=== PATIENT | male | born 1990 | race Caucasian/White ===

== ENCOUNTER 2017-07-21 13:39 | Observation (INO) ==
--- NOTE | 2017-07-21 19:01 | Emergency Department Note ---
Disposition Clinical Impression: Odynophagia, Hematemesis with nausea, Abdominal pain of unknown etiology Abdominal pain Qualifiers: Abdominal location: generalized Qualified Code(s): R10.84 - Generalized abdominal pain Disposition: Admitted As Inpatient Condition: Fair Time of Disposition: 23:06 General Adult HPI - General Chief complaint: ED Abdominal Pain Stated complaint: Vomiting Blood/trouble swallowing Time Seen by Provider: 07/21/17 18:38 Source: patient Mode of arrival: ambulatory Limitations: no limitations Nursing Notes Reviewed: Yes Vital Signs Reviewed: Yes - History of Present Illness HPI Narrative: 27-year-old male complains of odynophagia 7 days. Patient states that 7 days ago he attempted to swallow a house admin cupcake and he felt pain after swallowing and thought that it got stuck. Patient states it eventually cleared, but since then he has been having further episodes of odynophagia whenever he tries eat anything solid or semisolid like swallowing ice cream. Patient states he has similar pain with water but he is able to keep water down. All other foods, were vomited whenever he attempted to eat. Patient rates the pain as 5/10 and sharp with radiation upward toward his neck. Patient also complains of pain in the abdomen across his lower abdomen and epigastric, and left upper quadrant that started with the symptoms. Patient states he had 2 bouts of hematemesis. The first event was 5 days ago. Patient states he vomited approximately 4 ounces of bright red blood. The second incidence was this morning after attempting to eat ice cream. Patient has a medical history for GERD and is on Protonix at home. Patient has never had upper endoscopy for gastric ulcers in the past Pain Scale: 4 - Related Data Home Medications Medication Instructions Recorded Confirmed Acetaminophen/Butalbital/Caffe 1 each PO TID PRN 07/21/17 07/21/17 [Fioricet] Buprenorphine HCl/Naloxone HCl 1 each SL BID 07/21/17 07/21/17 [Suboxone 8 mg-2 mg Sl Film] Desvenlafaxine Succinate [Pristiq 50 mg PO DAILY 07/21/17 07/21/17 ER] Fenofibrate Nanocrystallized 145 mg PO BID 07/21/17 07/21/17 [Tricor] Pantoprazole Sodium [Protonix] 40 mg PO DAILY 07/21/17 07/21/17 Trazodone HCl 150 mg PO HS 07/21/17 07/21/17 clonazePAM [Klonopin] 1 mg PO TID 07/21/17 07/21/17 Allergies Allergy/AdvReac Type Severity Reaction Status Date / Time morphine Allergy Swelling Verified 07/21/17 14:32 of Lip/Tongue/Throat tramadol Allergy Swelling Verified 07/21/17 14:32 of Lip/Tongue/Throat All systems ED: reviewed and negative except as stated. Review of Systems: As Per HPI Constitutional: Denies: fever, chills, weakness Eyes: Denies: vision change ENT ED: Denies: congestion Cardiovascular: Reports: chest pain. Denies: palpitations, dyspnea on exertion , orthopnea Respiratory: Denies: cough, dyspnea Gastrointestinal: Reports: abdominal pain, nausea, vomiting. Denies: diarrhea Neurological: Denies: headache Endocrine: Reports: fatigue Past Medical History - Past Medical History Attestation: Yes The following information was validated with the patient. Source: patient, nursing notes reviewed Medical history: Reports: hyperlipidemia Psychiatric history: Reports: anxiety, depression, PTSD - Social History Smoking Status: Never smoker Alcohol use: Reports: none Drug use: Reports: none Physical Exam Vital Signs Temperature 98.5 F 07/21/17 14:28 Pulse Rate 100 07/21/17 14:28 Respiratory Rate 18 07/21/17 14:28 Blood Pressure 157/92 07/21/17 14:28 O2 Sat by Pulse Oximetry 98 07/21/17 14:28 Temperature 98.5 F 07/21/17 14:28 Pulse Rate 100 07/21/17 14:28 Respiratory Rate 18 07/21/17 14:28 Blood Pressure 157/92 07/21/17 14:28 O2 Sat by Pulse Oximetry 98 07/21/17 14:28 Oxygen Delivery Oxygen Delivery Room Air 27-year-old male who is alert and oriented 3 and does not appear to be in any acute distress at this time. Patient has no visible pallor. Patient is also nontoxic appearing - General Limitations: no limitations General appearance: alert, in no apparent distress - Head Head exam: atraumatic, normocephalic, normal inspection - Eye Eye exam: Present: normal appearance, PERRL, EOMI - ENT ENT exam: normal exam, normal oropharynx, mucous membranes moist - Neck Neck exam: Present: normal inspection, full ROM, trachea midline - Chest Chest inspection: Present: normal inspection, symmetric chest wall rise - Respiratory Respiratory exam: Present: normal lung sounds bilaterally - Cardiovascular Cardiovascular exam: Present: regular rate, normal rhythm, normal heart sounds - Abdominal Exam Abdominal exam: Present: soft, tenderness Abdominal tenderness: Present: RLQ, LUQ, LLQ, epigastrium, suprapubic - Extremities Exam Extremities exam: Present: normal inspection, full ROM, normal capillary refill. Absent: tenderness, pedal edema Course - Reevaluation(s) Reevaluation #2: Ordered 50 mg of fentanyl and a milligrams Zofran for pain and nausea Time: 22:58 - Consultations Consultation #1: Dr. Parker of gastroenterology has agreed to perform endoscopy tomorrow. Time: 22:44 Vital Signs Temperature 98.5 F 07/21/17 14:28 Pulse Rate 100 07/21/17 14:28 Respiratory Rate 18 07/21/17 14:28 Blood Pressure 157/92 07/21/17 14:28 O2 Sat by Pulse Oximetry 98 07/21/17 14:28 Temperature 98.5 F 07/21/17 14:28 Pulse Rate 82 07/21/17 22:37 Respiratory Rate 16 07/22/17 01:08 Blood Pressure 129/89 07/22/17 01:08 O2 Sat by Pulse Oximetry 100 07/21/17 22:37 Oxygen Delivery Oxygen Delivery Room Air Medical Decision Making - [facility] Narrative Medical decision making narrative: Patient with history of odynophagia and hematemesis for the past week concerning for possible Ivania-Wall tear, Beorhaave, peptic ulcer disease, with abdominal pain symptoms concerning for possible pancreatitis, colitis, UTI. 2037: Patient states that he is pretty comfortable after his medications. Currently rates his pain as 3/10. Patient is currently waiting to go to CT 2220 hours: Patient finally has agreed back from CT. Patient's CT scan shows no abnormalities. Current plan is for patient to be admitted for inability to tolerate by mouth with recent odontophagia and hematemesis. Patient has no signs of anemia on CBC, and no elevation of WBC. Patient's chemistries show mild reduction in sodium at 135.. 2230 hrs.: Patient complains of increasing pain. I reordered his fentanyl of 50 g as well as Zofran 8 mg IV. Patient has received Protonix bolus of 80 mg and will be started on protonixs drip. Patient still appears nontoxic and is doing well. Patient understands and accepts the decision for admission and understands that he would be Kept nothing by mouth until follow-up with GI. 2244 hrs.: Dr. Parker of gastroenterology has agreed to see the patient once he is admitted for endoscopy. Dr. Goss the hospitalist has accepted patient for admission at 0028 hours - Lab Data Lab results reviewed: Yes I reviewed the patient's lab results. Lab results narrative: Short CBC 07/21/17 Range/Units 20:16 WBC 7.2 (4.3-11.1) K/mcL Hgb 14.7 (12.9-16.9) g/dL Hct 44.4 (37.5-50.1) % Plt Count 255 (140-400) K/mcL Neutrophils # 2.6 (1.6-8.9) K/mcL BMP 07/21/17 Range/Units 20:16 Sodium 135 L (136-145) mEq/L Potassium 3.8 (3.5-5.1) mEq/L Chloride 99 (98-107) mEq/L Carbon Dioxide 27 (23-29) mEq/L BUN 6 (6-20) mg/dL Creatinine 1.01 (0.70-1.30) mg/dL Glucose 90 (70-105) mg/dL Calcium 9.6 (8.6-10.3) mg/dL Liver Function 07/21/17 Range/Units 20:16 Total Bilirubin 0.3 (0.3-1.0) mg/dL Direct Bilirubin 0.0 (0.0-0.2) mg/dL AST 24 (13-39) Units/L ALT 36 (7-52) Units/L Alkaline Phosphatase 64 (34-104) Units/L Albumin 4.9 (3.5-5.7) g/dL Urine 07/21/17 Range/Units 22:26 Urine Color Yellow (Yellow) Urine Clarity Clear (Clear) Urine pH 5.5 (5.0-8.0) pH Units Ur Specific [place] > 1.030 H (1.010-1.025) Urine Protein Negative (Neg-Trace) mg/dL Urine Glucose (UA) Normal (Normal) mg/dL Result diagrams: 07/21/17 20:16 07/21/17 20:16 Lab Results 07/21/17 07/21/17 07/21/17 Range/Units 20:16 20:16 22:26 WBC 7.2 (4.3-11.1) K/mcL RBC 5.56 H (4.19-5.50) M/mcL Hgb 14.7 (12.9-16.9) g/dL Hct 44.4 (37.5-50.1) % MCV 79.9 L (83.0-100.0) fL MCH 26.4 L (28.0-33.3) pg MCHC 33.1 (31.6-35.5) g/dL RDW 14.4 (11.5-14.5) % Plt Count 255 (140-400) K/mcL MPV 10.1 (9.4-12.4) fL Immature Gran % 0.1 (0-4) % Seg Neutrophils % 35.5 % Lymphocytes % 41.3 % Monocytes % 4.6 % Eosinophils % 17.8 % Basophils % 0.7 % Neutrophils # 2.6 (1.6-8.9) K/mcL Lymphocytes # 3.0 (0.6-4.6) K/mcL Monocytes # 0.3 (0.0-1.3) K/mcL Eosinophils # 1.3 H (0.0-0.6) K/mcL Basophils # 0.1 (0.0-0.2) K/mcL Sodium 135 L (136-145) mEq/L Potassium 3.8 (3.5-5.1) mEq/L Chloride 99 (98-107) mEq/L Carbon Dioxide 27 (23-29) mEq/L BUN 6 (6-20) mg/dL Creatinine 1.01 (0.70-1.30) mg/dL Est GFR ( Amer) > 60 (> 60) Est GFR (Non-Af Amer) > 60 (> 60) BUN/Creatinine Ratio 6 (6-26) Glucose 90 (70-105) mg/dL Calculated Osmolality 277 L (280-300) Calcium 9.6 (8.6-10.3) mg/dL Total Bilirubin 0.3 (0.3-1.0) mg/dL Direct Bilirubin 0.0 (0.0-0.2) mg/dL Indirect Bilirubin 0.3 (0.0-1.2) mg/dL AST 24 (13-39) Units/L ALT 36 (7-52) Units/L Alkaline Phosphatase 64 (34-104) Units/L Serum Total Protein 7.2 (6.4-8.9) g/dL Albumin 4.9 (3.5-5.7) g/dL Globulin 2.3 L (2.4-3.5) g/dL Albumin/Globulin Ratio 2.1 (1.1-2.2) Lipase 13 (11-82) Units/L Urine Color Yellow (Yellow) Urine Clarity Clear (Clear) Urine pH 5.5 (5.0-8.0) pH Units Ur Specific [place] > 1.030 H (1.010-1.025) Urine Protein Negative (Neg-Trace) mg/dL Urine Glucose (UA) Normal (Normal) mg/dL Urine Ketones Negative (Negative) mg/dL Urine Blood Negative (Negative) Urine Nitrite Negative (Negative) Urine Bilirubin Negative (Negative) Urine Urobilinogen Normal (Normal) mg/dL Ur Leukocyte Esterase Negative (Negative) - Radiology Data Radiology results reviewed: Yes I reviewed the patient's radiology results. Chest X-Ray 07/21/17 14:37 IMPRESSION: 1. Abnormal appearance of the cervical soft tissues. No radiopaque foreign body. 2. Normal chest. D/ / 07/21/2017 17:07:58 Fede Bunch MD / tito Interpreting Provider: Fede Bunch MD Soft Tissue Neck X-Ray 07/21/17 14:37 IMPRESSION: 1. Abnormal appearance of the cervical soft tissues. No radiopaque foreign body. 2. Normal chest. D/ / 07/21/2017 17:07:58 Fede Bunch MD / tito Interpreting Provider: Fede Bunch MD Abdomen/Pelvis CT 07/21/17 19:09 IMPRESSION: No acute abnormality identified. Fatty, moderately enlarged liver. D/ / Jairo Gupta MD / Jairo Gupta MD Interpreting Provider: Jairo Gupta MD Chest CT 07/21/17 19:09 IMPRESSION: No acute abnormality identified. Fatty, moderately enlarged liver. D/ / Jairo Gupta MD / Jairo Gupta MD Interpreting Provider: Jairo Gupta MD - EKG Data EKG #1 EKG attestation: Yes I reviewed and interpreted this EKG. EKG results narrative: EKG taken 07/21/2017 at 2056 shows sinus rhythm at a rate of 71 beats minute with no acute ST elevations or depressions any leads, no Q's widened QT prolongation. This is regular rate and rhythm with a previous EKG for comparison taken 04/22/2012 with also shows a sinus rhythm at a rate of 80 beats minute with no signs of ischemia. Attestation Statement - Attestation Attestation: I examined this patient and my medical decision-making was reviewed with the Resident Physician, Dr. De León. I agree with the documented findings, disposition and treatment plan as described except to the extent set forth below. Patient is a 27-year-old white male who present to the emergency department today with complaint of odynophagia and hematemesis since last Thursday. Patient states it all began when he got a house admin cupcake that felt like it got stuck pointing to his substernal area. Patient states he drink lots of water until he felt it finally passed and the discomfort was relieved. Patient states since this incident last week every time he eats anything solid he gets that same recurrent feeling of something getting stuck and ultimately has to have a vomiting episode to relieve the distress. He is unable to tolerate anything but fluids at this point and states that even sometimes has trouble with that. Patient had no prior GI history, never had an endoscopy in the past and never has had symptoms like this before. Over the past 2 days when he has had vomiting secondary to recurrence of this food bolus sensation he has noticed bright red blood with vomiting. Patient denies any lightheadedness or syncope, also has complained of some mild suprapubic abdominal pain as well. Patient denies any bright red blood per rectum or tarry black stool. Denies any other associated symptoms. I agree with the patient's physical exam findings as documented. Vital signs are stable and he is having no acute distress. IV Protonix was initiated as well as pain and antiemetics. Laboratory values were obtained and patient was sent for CT imaging of his chest and abdomen after speaking with the radiologist with our concerns for possible Ivania- Wall tear versus Boerhaave's injury. They recommended that he be orally contrasted with Gastrografin CT with timed imaging to rule out any esophageal perforation. Patient's labs are within normal limits and CT imaging was negative for any acute chest or intra-abdominal pathology. Patient still unable to tolerate by mouth somewhat admit the patient for further evaluation and GI consult. GI was consulate from the emergency department.
[2017-07-21] MEDS ORDERED: 0.9 % Sodium Chloride 500 ML IVC ONE (19:09)
[2017-07-21] MEDS ORDERED: *HR* FentaNYL (PF) 100 MCG/2 ML VIAL IVP ONE ×2 (19:11→22:57)
[2017-07-21] MEDS ORDERED: Ondansetron 4 MG/2 ML VIAL IVP PRN ×2 (19:11→22:57)
[2017-07-21] MEDS ORDERED: Pantoprazole 80 MG in Water for inj. (sterile) 10 ML IVP ONE (19:11)
[2017-07-21 20:29] LABS: Basophils # 0.1 K/mcL (0.0-0.2); Basophils % 0.7 %; Eosinophils # 1.3 K/mcL (0.0-0.6); Eosinophils % 17.8 %; Hematocrit 44.4 % (37.5-50.1); Hemoglobin 14.7 g/dL (12.9-16.9); Immature Granulocytes % 0.1 % (0-4); Lymphocytes % 41.3 %; Mean Corpuscular HGB Conc 33.1 g/dL (31.6-35.5); Mean Corpuscular Hemoglobin 26.4 pg (28.0-33.3); Mean Corpuscular Volume 79.9 fL (83.0-100.0); Mean Platelet Volume 10.1 fL (9.4-12.4); Monocytes # 0.3 K/mcL (0.0-1.3); Monocytes % 4.6 %; Neutrophils # 2.6 K/mcL (1.6-8.9); Platelet Count 255 K/mcL (140-400); Red Blood Count 5.56 M/mcL (4.19-5.50); Red Cell Distribution Width 14.4 % (11.5-14.5); Segmented Neutrophils % 35.5 %
[2017-07-21 20:38] LABS: Albumin 4.9 g/dL (3.5-5.7); Bilirubin,Indirect 0.3 mg/dL (0.0-1.2); Bilirubin,Total 0.3 mg/dL (0.3-1.0); Calcium 9.6 mg/dL (8.6-10.3); Carbon Dioxide 27 mEq/L (23-29); Chloride 99 mEq/L (98-107); Potassium 3.8 mEq/L (3.5-5.1); Sodium 135 mEq/L (136-145)
[2017-07-21 20:44] LABS: Alanine Aminotransferase 36 Units/L (7-52); Albumin/Globulin Ratio 2.1 (1.1-2.2); Alkaline Phosphatase 64 Units/L (34-104); Aspartate Amino Transferase 24 Units/L (13-39); BUN/Creatinine Ratio 6 (6-26); Blood Urea Nitrogen 6 mg/dL (6-20); Globulin 2.3 g/dL (2.4-3.5); Glucose 90 mg/dL (70-105); Lipase 13 Units/L (11-82); Osmolality,Calculated 277 (280-300); Total Protein 7.2 g/dL (6.4-8.9); eGFR For African Americans > 60 (> 60); eGFR For Non-African Americans > 60 (> 60)
[2017-07-21 22:39] LABS: Bilirubin,Urine Negative (Negative); Blood,Urine Negative (Negative); Clarity,Urine Clear (Clear); Color,Urine Yellow (Yellow); Glucose,Urine (UA) Normal (Normal); Ketones,Urine Negative (Negative); Leukocyte Esterase,Urine Negative (Negative); Nitrite,Urine Negative (Negative); PH,Urine 5.5 pH Units (5.0-8.0); Protein,Urine Negative (Neg-Trace); Specific Gravity,Urine > 1.030 (1.010-1.025); Urobilinogen,Urine Normal (Normal)
[2017-07-21] MEDS ORDERED: Pantoprazole 40 MG in 0.9 % Sodium Chloride Mini Bag 100 ML IVC SCH (23:15)
[2017-07-22] MEDS ORDERED: 0.9 % Sodium Chloride 1,000 ML IVC SCH ×2 (01:15→02:45)
[2017-07-22] MEDS ORDERED: *HR* HYDROmorphone (PF) 1 MG/ML SYRINGE IVP PRN (02:41)
[2017-07-22] MEDS ORDERED: Naloxone 0.4 MG/ML INJ IVP PRN (02:52)
[2017-07-22] MEDS: Ondansetron 4 MG/2 ML VIAL IVP PRN ×3 (03:15→23:40)
[2017-07-22] MEDS: Ketorolac 30 MG/ML VIAL IVP PRN ×2 (03:15→10:15)
--- NOTE | 2017-07-22 03:30 | Internal Med History&Physical ---
<Vishal Lainez - Last Filed: 07/22/17 03:07> Date of Encounter: 07/22/17 Time of Encounter: 03:07 Assessment and Plan (1) Hematemesis with nausea Current visit: Yes Status: Acute stated history of hematemesis x2 episodes not anemic at this time, no known history of alcohol abuse or prior similar bleed monitor due to concern of ongoing blood loss cont to monitor labs -- CBC and BMP patient is NPO GI consult is pending for possible EGD Cont Protonix and IVF (2) Dysphagia, unspecified Current visit: Yes Status: Acute states food gets stuck deep in chest GI consult pending; will likely benefit from EGD other plans as above Qualifiers: Dysphagia type: esophageal phase Qualified Code(s): R13.10 - Dysphagia, unspecified (3) Abdominal pain of unknown etiology Current visit: Yes Status: Acute extensive imaging work up negative including XR/CT consult pending with GI other plan as above (4) DVT prophylaxis Current visit: Yes Status: Acute hold subq heparin due to UGI bleed ambulate TID Internal Medicine - H&P: HPI Chief complaint: dysphagia, abd pain, bloody vomit Admitted From: Emergency Dept Plans for Post Hospital Care: Home History of present illness: Mr. Raza is a 27 year old male with no known medical history is admitted for new upper GI bleed. Patient states has had lower quadrant abdominal pain starting last Thursday which is sharp in quality without any referral or migration. Also, since has had difficulty swallowing foods and has noted two episodes of grossly bloody vomitus in the interim -- once Thursday morning and once Thursday (07/21/16) morning. Denies fevers, myalgias, ongoing nausea, chest pain, SOA, diarrhea, melena, hematemesis, dysuria/hematuria, testicular pain, or urethral discharge. Has since eaten exclusively soft foods having difficulty still with soft fluids and liquids. Does have ongoing dyspepsia for which he takes Protonix at home. Denies any alcohol use. Past Med Surg Social Fam HX - Past Medical History Medical history: hyperlipidemia Psychiatric history: anxiety, depression, PTSD - Social History Smoking Status: Never smoker Alcohol use: none Drug use: none Internal Medicine - H&P: Meds Acetaminophen/Butalbital/Caffe [Fioricet] 1 each PO TID PRN 07/21/17 [History] Buprenorphine HCl/Naloxone HCl [Suboxone 8 mg-2 mg Sl Film] 1 each SL BID [History] Desvenlafaxine Succinate [Pristiq ER] 50 mg PO DAILY 07/21/17 [History] Fenofibrate Nanocrystallized [Tricor] 145 mg PO BID 07/21/17 [History] Pantoprazole Sodium [Protonix] 40 mg PO DAILY 07/21/17 [History] Trazodone HCl 150 mg PO HS 07/21/17 [History] clonazePAM [Klonopin] 1 mg PO TID 07/21/17 [History] 3 Allergy/AdvReac Type Severity Reaction Status Date / Time morphine Allergy Swelling Verified 07/21/17 14:32 of Lip/Tongue/Throat shellfish derived Allergy Swelling Verified 07/22/17 03:34 of Lip/Tongue/Throat tramadol Allergy Swelling Verified 07/21/17 14:32 of Lip/Tongue/Throat All Systems PM: A 10-system review of systems was performed and is negative for pertinent findings except as documented above in the HPI. Review of systems: see HPI - Constitutional Vitals: Temp Pulse Resp BP Pulse Ox 97.7 F 87 16 138/89 95 07/22/17 02:34 07/22/17 02:34 07/22/17 02:34 07/22/17 02:34 07/22/17 02:34 General appearance: Present: A&O X 3 - Head Head exam: Present: atraumatic, normocephalic - Eye Eye exam: Present: PERRL, conjuntiva pink, sclera anicteric Pupils: Present: PERRL - Neck Neck exam general surgery: Present: supple, trachea midline. Absent: lymphadenopathy - Respiratory Respiratory exam: Present: CTAB. Absent: accessory muscle use, rales, respiratory distress, rhonchi, wheezes - Cardiovascular Cardiovascular exam: Present: RRR, +S1, +S2. Absent: diastolic murmur, gallop, rubs, systolic murmur - GI/Abdominal Additional comments: Positive bowel sounds, tenderness to the palpation epigastric and bilateral lower quadrants, no peritoneal signs, negative CVA tenderness - Extremities Exam Extremities exam: Present: warm, radial pulses palpable and symmetrical. Absent : calf tenderness, cyanotic, pedal edema - Neurological Exam Neurological exam: Present: oriented X3, no focal deficits. Absent: speech deficit - Skin Skin exam: Present: dry, intact Internal Med - H&P Results - Labs CBC & Chem 7: 07/21/17 20:16 07/21/17 20:16 <Chrissy Chow - Last Filed: 07/22/17 04:27> Date of Encounter: 07/22/17 Time of Encounter: 03:04 Internal Medicine - H&P: HPI History of present illness: Mr. Raza is a 27 year old male All Systems PM: A 10-system review of systems was performed and is negative for pertinent findings except as documented above in the HPI. - Constitutional Vitals: Temp Pulse Resp BP Pulse Ox 97.7 F 87 16 138/89 95 07/22/17 02:34 07/22/17 02:34 07/22/17 02:34 07/22/17 02:34 07/22/17 02:34 Internal Med - H&P Results - Labs CBC & Chem 7: 07/21/17 20:16 07/21/17 20:16 - Attending Attestation I examined this patient and my medical decision-making was reviewed with the Resient Physician, Vishal Lainez. I agree with the documented findings, disposition and treatment plan as described except to the extent set forth below. 27-year-old male patient presenting with complaints of odynophagia and dysphagia along with 2 episodes of hematemesis. Symptoms began 1 week back. Patient reports trouble swallowing or cupcake at that time. One day later he began to have symptoms of heartburn and odynophagia. Progressed to dysphagia initially to solids but not to liquids. Has had multiple episodes of nausea and vomiting since then. No new episodes of nausea and vomiting since coming to the ER here. Does report epigastric abdominal pain. On examination, lower abdominal tenderness positive. No epigastric tenderness. Heart sounds are normal. Labs show no significant abnormalities. CT scan of the chest and abdomen did not show any acute findings. Odynophagia/dysphagia: Keep nothing by mouth. GI consult for possible scope tomorrow. Monitor blood counts. Hematemesis: 2 episodes. Now stopped. IV Protonix. Upper GI endoscopy. Abdominal pain: Could be related to gastritis/esophageal tear. Keep nothing by mouth. Pain control. As patient is not having any active bleeding at this time , we will use Toradol for pain control. Patient is allergic to morphine and is on Suboxone. We will therefore avoid narcotic agents. Monitor blood counts.
--- NOTE | 2017-07-22 08:19 | Electrocardiograph Report ---
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
[2017-07-22 08:21] LABS: Basophils # 0.1 K/mcL (0.0-0.2); Basophils % 0.8 %; Eosinophils # 1.3 K/mcL (0.0-0.6); Eosinophils % 17.9 %; Hemoglobin 13.7 g/dL (12.9-16.9); Immature Granulocytes % 0.1 % (0-4); Lymphocytes # 3.1 K/mcL (0.6-4.6); Lymphocytes % 41.3 %; Mean Corpuscular HGB Conc 33.4 g/dL (31.6-35.5); Mean Corpuscular Hemoglobin 26.9 pg (28.0-33.3); Mean Corpuscular Volume 80.6 fL (83.0-100.0); Mean Platelet Volume 9.3 fL (9.4-12.4); Monocytes # 0.4 K/mcL (0.0-1.3); Monocytes % 5.7 %; Neutrophils # 2.5 K/mcL (1.6-8.9); Platelet Count 246 K/mcL (140-400); Red Blood Count 5.09 M/mcL (4.19-5.50); Red Cell Distribution Width 14.4 % (11.5-14.5); Segmented Neutrophils % 34.2 %
[2017-07-22] MEDS: Pantoprazole 40 MG VIAL IVP SCH (10:07)
[2017-07-22] MEDS: Venlafaxine XR (24 HR) 75 MG CAP.ER.24H PO SCH (10:07)
[2017-07-22] MEDS: SUBOXONE SL SCH ×3 (10:07→20:39)
[2017-07-22] MEDS: Fenofibrate 54 MG TABLET PO SCH ×2 (10:07→20:40)
[2017-07-22] MEDS: clonazePAM 1 MG TABLET PO PRN ×3 (10:15→23:34)
--- NOTE | 2017-07-22 11:41 | Gastroenterology Consult Note ---
<Sea Munson - Last Filed: 07/22/17 11:38> Date of Encounter: 07/22/17 Time of Encounter: 10:40 - Assessment and plan (1) Dysphagia, unspecified Current Visit: Yes Status: Acute Assessment and plan: Pt with solids becoming "stuck" in his lower esophagus. Plan for EGD today with possible dilation r/o structural causes such as stricture, tumor, etc vs esophageal motility disorder. Keep pt NPO. Qualifiers: Dysphagia type: esophageal phase Qualified Code(s): R13.10 - Dysphagia, unspecified (2) Hematemesis with nausea Current Visit: Yes Status: Acute Assessment and plan: Pt with 2 episodes of hematemesis. Continue PPI and plan for EGD today to r/o esophagitis, gastritis, duodenitis, PUD, MW tear, or AVM. Hgb normal at 13.7 today. (3) Abdominal pain Current Visit: Yes Status: Acute Assessment and plan: Continue PPI and plan for EGD today to r/o esophagitis, gastritis, duodenitis, PUD, MW tear, or AVM. Qualifiers: Abdominal location: epigastric Qualified Code(s): R10.13 - Epigastric pain - Time Spent With Patient Total time spent is greater than 50% in coordination of care (as documented) at patient's floor/unit and/or counseling patient: GI History of Present Illness - Data of Consult Patient: new to practice Consult date: 07/22/17 Requesting Physician: Arabella Hernandez CNP - Consult Narrative Reason for consult: Odynophagia, with hematemesis History of present illness: Mr. Raza is a 27 year old male with no known medical history was admitted with upper GI bleed and odynophagia for the past week. Patient states that 7 days ago he attempted to swallow a cupcake and he felt pain after swallowing and thought that it got stuck. Patient states it eventually cleared, but since then he has been having further episodes of odynophagia whenever he tries eat anything solid or semisolid like swallowing ice cream. He has had 2 episodes of hematemesis, once José Miguel morning and once yesterday (07/21). He denies fever, chills, chest pain, shortness of breath, diarrhea, constipation, melena, or hematochezia. Procedures: EGD 02/27/2012 Dr. Calvin: Concerning for EOE, pathology negative for EOE. NSAIDs: None Anticoagulation: None Past Med Surg Social Fam HX - Past Medical History Medical history: hyperlipidemia Psychiatric history: anxiety, depression, PTSD - Past Surgical History Surgical History: appendectomy - Social History Smoking Status: Never smoker Alcohol use: none Drug use: none - Family History Mother Hx Family Cardiac Disorders: Yes (HYPERTENSION.) - Gastrointestinal Gastrointestinal: Present: as per HPI - Constitutional Constitutional: as per HPI - EENT Eyes: as per HPI Ears: Present: as per HPI Nose, mouth and throat: Present: as per HPI - Cardiovascular Cardiovascular ROS: Present: as per HPI - Respiratory Respiratory IM: Present: as per HPI - Genitourinary Genitourinary: Absent: change in color, Urinary frequency - Neurological ROS Neurological GI: Present: as per HPI - Hematologic/Lymphatic Hematologic/Lymphatic pediatric: Present: as per HPI - Musculoskeletal Musculoskeletal ROS GI: Present: as per HPI - Integumentary Integumentary GI: Present: as per HPI - Psychiatric ROS Psychiatric GI: Present: as per HPI - Endocrine Endocrine IM: Present: as per HPI - Constitutional Vitals: Temp Pulse Resp BP Pulse Ox 97.9 F 77 20 146/89 96 07/22/17 11:08 07/22/17 11:08 07/22/17 11:08 07/22/17 11:08 07/22/17 11:08 General appearance: Present: cooperative, A&O X 3, no acute distress, answers questions appropriately - Head Head exam: Present: atraumatic, normocephalic - Eye Eye exam: Present: normal appearance, sclera anicteric - ENT ENT exam: Present: mucous membranes dry - Neck Neck exam general surgery: Present: normal inspection, trachea midline - Respiratory Respiratory exam: Present: CTAB. Absent: rales, rhonchi - Cardiovascular Cardiovascular exam: Present: RRR, +S1, +S2 - GI/Abdominal GI/Abdominal exam: Present: soft, tenderness (epigastric), no peritoneal signs. Absent: distended, firm, guarding - Rectal Rectal exam: Present: deferred - Extremities Exam Extremities exam: Present: warm - Neurological Exam Neurological exam: Present: no focal deficits - Psychiatric Psychiatric exam: Present: normal affect, normal mood - Skin Skin exam: Present: dry, intact, normal color, warm Results - Labs CBC & Chem 7: 07/22/17 08:13 07/21/17 20:16 Labs: Last Result Calcium 9.6 mg/dL (8.6-10.3) 07/21/17 20:16 Entire Visit Hgb 13.7 g/dL (12.9-16.9) 07/22/17 08:13 Hct 41.0 % (37.5-50.1) 07/22/17 08:13 Total Bilirubin 0.3 mg/dL (0.3-1.0) 07/21/17 20:16 AST 24 Units/L (13-39) 07/21/17 20:16 ALT 36 Units/L (7-52) 07/21/17 20:16 Lipase 13 Units/L (11-82) 07/21/17 20:16 Consult Discharge Plan - Plan Referrals: NONE,PCP [Primary Care Provider] - <Heidi Calvin - Last Filed: 07/22/17 20:51> Date of Encounter: 07/22/17 Time of Encounter: 12:35 - Time Spent With Patient Total time spent is greater than 50% in coordination of care (as documented) at patient's floor/unit and/or counseling patient: GI History of Present Illness - Data of Consult Requesting Physician: Arabella Hernandez CNP - Consult Narrative History of present illness: Mr. Raza is a 27 year old male - Constitutional Vitals: Temp Pulse Resp BP Pulse Ox 98.4 F 91 16 157/106 91 07/22/17 19:52 07/22/17 19:52 07/22/17 19:52 07/22/17 19:52 07/22/17 19:52 Results - Labs CBC & Chem 7: 07/22/17 08:13 07/21/17 20:16 Labs: Last Result Calcium 9.6 mg/dL (8.6-10.3) 07/21/17 20:16 Entire Visit Hgb 13.7 g/dL (12.9-16.9) 07/22/17 08:13 Hct 41.0 % (37.5-50.1) 07/22/17 08:13 Total Bilirubin 0.3 mg/dL (0.3-1.0) 07/21/17 20:16 AST 24 Units/L (13-39) 07/21/17 20:16 ALT 36 Units/L (7-52) 07/21/17 20:16 Lipase 13 Units/L (11-82) 07/21/17 20:16 - Attending Attestation I examined this patient and my medical decision-making was reviewed with the ELECTRONIC TEST TECHNICIAN. I agree with the documented findings, disposition and treatment plan as described except to the extent set forth below. Pt seen. Pt with dysphagia/odynophagia, abd pain and hematemesi. Does has shefish allergies. R/O EE, r/u esophageal/gastric causes Rec: EGD today and poss dilation
[2017-07-22] MEDS: Acetaminophen/Butalbital/CaffeineTABLET PO PRN ×3 (11:48→23:34)
--- NOTE | 2017-07-22 12:56 | Anesthesia Evaluation PreOp ---
Date of Encounter: 07/22/17 Time of Encounter: 12:53 - Past History Planned Operation: EGD Cardiac History: HTN (undiagnosed, Untreated), Hyperlipidemia (maintained on Fenofibrate) Pulmonary History: Denies Any Significant HX [employer] History: Other (Anxiety/Depression/PTSD maintained on Pristq, Klonzaepam, Trazadone.) Other Medical History: Hepatic (moderately enlarged Liver per imaging this hospitalization. Denies Hep C), GERD (Dysphagia. Hx Hematemesis x2) Anesthesia History: Past Anesthesia (Appy) Alcohol Use: none Drug use: none, IV Drug Use (Hx of chronic opiate use for chronic pain. States he requested to be taken off them and is now maintained on Suboxone. DeNIES polysubstance abuse.) Medications and Allergies Acetaminophen/Butalbital/Caffe [Fioricet] 1 each PO TID PRN 07/21/17 [History] Buprenorphine HCl/Naloxone HCl [Suboxone 8 mg-2 mg Sl Film] 1 each SL BID [History] Desvenlafaxine Succinate [Pristiq ER] 50 mg PO DAILY 07/21/17 [History] Fenofibrate Nanocrystallized [Tricor] 145 mg PO BID 07/21/17 [History] Pantoprazole Sodium [Protonix] 40 mg PO DAILY 07/21/17 [History] Trazodone HCl 150 mg PO HS 07/21/17 [History] clonazePAM [Klonopin] 1 mg PO TID 07/21/17 [History] 3 Allergy/AdvReac Type Severity Reaction Status Date / Time morphine Allergy Swelling Verified 07/21/17 14:32 of Lip/Tongue/Throat shellfish derived Allergy Swelling Verified 07/22/17 03:34 of Lip/Tongue/Throat tramadol Allergy Swelling Verified 07/21/17 14:32 of Lip/Tongue/Throat - Meds/Allergy Pre-op Review Medications Reviewed: Yes Allergies Reviewed: Yes Beta Blockers on Current Med List: No Anesthesia Results - Labs 07/22/17 08:13 07/21/17 20:16 Laboratory Tests 07/21/17 07/22/17 20:16 08:13 WBC 7.4 Hgb 13.7 Hct 41.0 Plt Count 246 Sodium 135 L Potassium 3.8 Chloride 99 Carbon Dioxide 27 BUN 6 Creatinine 1.01 Est GFR (Non-Af Amer) > 60 Glucose 90 Laboratory Results WBC 7.4 K/mcL (4.3-11.1) 07/22/17 08:13 RBC 5.09 M/mcL (4.19-5.50) 07/22/17 08:13 Hgb 13.7 g/dL (12.9-16.9) 07/22/17 08:13 Hct 41.0 % (37.5-50.1) 07/22/17 08:13 MCV 80.6 fL (83.0-100.0) L 07/22/17 08:13 MCH 26.9 pg (28.0-33.3) L 07/22/17 08:13 MCHC 33.4 g/dL (31.6-35.5) 07/22/17 08:13 RDW 14.4 % (11.5-14.5) 07/22/17 08:13 Plt Count 246 K/mcL (140-400) 07/22/17 08:13 MPV 9.3 fL (9.4-12.4) L 07/22/17 08:13 Immature Gran % 0.1 % (0-4) 07/22/17 08:13 Seg Neutrophils % 34.2 % 07/22/17 08:13 Lymphocytes % 41.3 % 07/22/17 08:13 Monocytes % 5.7 % 07/22/17 08:13 Eosinophils % 17.9 % 07/22/17 08:13 Basophils % 0.8 % 07/22/17 08:13 Neutrophils # 2.5 K/mcL (1.6-8.9) 07/22/17 08:13 Lymphocytes # 3.1 K/mcL (0.6-4.6) 07/22/17 08:13 Monocytes # 0.4 K/mcL (0.0-1.3) 07/22/17 08:13 Eosinophils # 1.3 K/mcL (0.0-0.6) H 07/22/17 08:13 Basophils # 0.1 K/mcL (0.0-0.2) 07/22/17 08:13 Sodium 135 mEq/L (136-145) L 07/21/17 20:16 Potassium 3.8 mEq/L (3.5-5.1) 07/21/17 20:16 Chloride 99 mEq/L (98-107) 07/21/17 20:16 Carbon Dioxide 27 mEq/L (23-29) 07/21/17 20:16 BUN 6 mg/dL (6-20) 07/21/17 20:16 Creatinine 1.01 mg/dL (0.70-1.30) 07/21/17 20:16 Est GFR ( Amer) > 60 (> 60) 07/21/17 20:16 Est GFR (Non-Af Amer) > 60 (> 60) 07/21/17 20:16 BUN/Creatinine Ratio 6 (6-26) 07/21/17 20:16 Glucose 90 mg/dL (70-105) 07/21/17 20:16 Calculated Osmolality 277 (280-300) L 07/21/17 20:16 Calcium 9.6 mg/dL (8.6-10.3) 07/21/17 20:16 Total Bilirubin 0.3 mg/dL (0.3-1.0) 07/21/17 20:16 Direct Bilirubin 0.0 mg/dL (0.0-0.2) 07/21/17 20:16 Indirect Bilirubin 0.3 mg/dL (0.0-1.2) 07/21/17 20:16 AST 24 Units/L (13-39) 07/21/17 20:16 ALT 36 Units/L (7-52) 07/21/17 20:16 Alkaline Phosphatase 64 Units/L (34-104) 07/21/17 20:16 Serum Total Protein 7.2 g/dL (6.4-8.9) 07/21/17 20:16 Albumin 4.9 g/dL (3.5-5.7) 07/21/17 20:16 Globulin 2.3 g/dL (2.4-3.5) L 07/21/17 20:16 Albumin/Globulin Ratio 2.1 (1.1-2.2) 07/21/17 20:16 Lipase 13 Units/L (11-82) 07/21/17 20:16 Urine Color Yellow (Yellow) 07/21/17 22:26 Urine Clarity Clear (Clear) 07/21/17 22:26 Urine pH 5.5 pH Units (5.0-8.0) 07/21/17 22:26 Ur Specific [place] > 1.030 (1.010-1.025) H 07/21/17 22:26 Urine Protein Negative mg/dL (Neg-Trace) 07/21/17 22:26 Urine Glucose (UA) Normal mg/dL (Normal) 07/21/17 22:26 Urine Ketones Negative mg/dL (Negative) 07/21/17 22:26 Urine Blood Negative (Negative) 07/21/17 22:26 Urine Nitrite Negative (Negative) 07/21/17 22:26 Urine Bilirubin Negative (Negative) 07/21/17 22:26 Urine Urobilinogen Normal mg/dL (Normal) 07/21/17 22:26 Ur Leukocyte Esterase Negative (Negative) 07/21/17 22:26 Impressions Chest X-Ray 07/21/17 14:37 IMPRESSION: 1. Abnormal appearance of the cervical soft tissues. No radiopaque foreign body. 2. Normal chest. D/ : / 07/21/2017 17:07:58 Fede Bunch MD / tito Interpreting Provider: Fede Bunch MD Soft Tissue Neck X-Ray 07/21/17 14:37 IMPRESSION: 1. Abnormal appearance of the cervical soft tissues. No radiopaque foreign body. 2. Normal chest. D/ / 07/21/2017 17:07:58 Fede Bunch MD / tito Interpreting Provider: Fede Bunch MD Abdomen/Pelvis CT 07/21/17 19:09 IMPRESSION: No acute abnormality identified. Fatty, moderately enlarged liver. D/ / Jairo Gupta MD / Jairo Gupta MD Interpreting Provider: Jairo Gupta MD Chest CT 07/21/17 19:09 IMPRESSION: No acute abnormality identified. Fatty, moderately enlarged liver. D/ / Jairo Gupta MD / Jairo Gupta MD Interpreting Provider: Jairo Gupta MD Anesthesia Exam Vital Signs Temp Pulse Resp BP Pulse Ox 07/22/17 12:59 97.8 F 80 18 152/104 96 07/22/17 11:08 97.9 F 77 20 146/89 96 07/22/17 07:10 97.6 F 78 20 138/91 97 07/22/17 02:34 97.7 F 87 16 138/89 95 07/22/17 01:08 16 129/89 07/21/17 22:37 82 16 138/90 100 07/21/17 14:28 98.5 F 100 18 157/92 98 Intake and Output 07/21/17 07/22/17 07/22/17 23:59 07:59 15:59 Other: Weight 107.501 kg Patient Weight 07/22/17 23:59 Weight 107.501 kg Height: 5'11" Weight: 237# BMI = 33 NPO (# of Hours): MNoc - HEENT Pupil (Motor): Pupils equal, EOMI Mallampati: II Teeth: Poor dentition Oral Opening: Greater than 3 - [employer] LOC: Oriented [employer] Motor: Normal RUE, Normal LUE, Normal RLE, Normal LLE, Normal Face [employer] Sensory: Normal: RUE, LUE, RLE, LLE, Face - Cardiac Rhythm: Regular Murmur: None - Pulmonary Breath Sounds: bilateral Clear Respiratory Effort: Symmetrical Anesthesia Assess/Plan ASA Score: 3 (Polysubstance abuse currently maintained on Suboxone. Chol, HTN) Anesthetic Plan: MAC Monitoring Plan: Standard Monitors Recovery Plan: PACU Anes Supervising Prov Stmt: Pt seen/evaluated, R&B Discussed, questions answered and consent obtained. Chele Turner MD
[2017-07-22] MEDS ORDERED: Tetracaine/Benzocaine/Butamben 200MG/SPRAY (100SPY/BOT) MM ONE (13:01)
[2017-07-22] MEDS ORDERED: Simethicone 40 MG/0.6 ML MLS IR ONE (13:01)
[2017-07-22] MEDS ORDERED: *HR* Propofol 200 MG/20 ML VIAL IVP ONE (13:34)
[2017-07-22] MEDS ORDERED: Lidocaine -MPF 2% 2 ML VIAL ONE (13:57)
--- NOTE | 2017-07-22 17:22 | Event Note ---
Date of Encounter: 07/22/17 Time of Encounter: 17:22 Patient was seen at the bedside and is in no acute distress. No further emesis per patient report. He has no questions regarding the plan of care. Hematemesis with nausea: stated history of hematemesis x2 episodes no known history of alcohol abuse or prior similar bleed Underwent an EGD that showed duodenitis and a gastric ulcer; status post esophageal dilation. Hgb stable, okay to start soft diet per GI GI following Dysphagia, unspecified states food gets stuck deep in chest GI consut with esophageal dilation other plans as above Abdominal pain of unknown etiology Extensive imaging work up negative including XR/CT GI following other plan as above DVT prophylaxis Hold subq heparin due to UGI bleed Ambulate TID
[2017-07-22] MEDS ORDERED: traZODone 50 MG TABLET PO SCH (21:00)
[2017-07-23 07:29] VITALS: BP 134/82
[2017-07-23] MEDS: Fenofibrate 54 MG TABLET PO SCH (09:47)
[2017-07-23] MEDS: Venlafaxine XR (24 HR) 75 MG CAP.ER.24H PO SCH (09:47)
[2017-07-23] MEDS: Pantoprazole 40 MG VIAL IVP SCH (09:48)
[2017-07-23] MEDS: Acetaminophen/Butalbital/CaffeineTABLET PO PRN (09:50)
[2017-07-23] MEDS: clonazePAM 1 MG TABLET PO PRN (09:50)
[2017-07-23] MEDS: SUBOXONE SL SCH (10:10)
--- NOTE | 2017-07-23 10:48 | Discharge Summary ---
Date of Encounter: 07/23/17 Time of Encounter: 10:31 - Discharge Diagnosis (1) Hematemesis with nausea Priority: Primary Status: Acute Comments: 27-year-old male presented for evaluation of abdominal pain with hematocrit emesis 2 episodes and difficulty swallowing. No known medical history and no known history of alcohol abuse or prior similar bleed Underwent an EGD that showed duodenitis and a gastric ulcer; status post esophageal dilation. Hgb stable, continue soft diet per GI GI follow up in 8 weeks for repeat EGD To increase PPI (protonix) to BID from daily Avoid NSAIDs and alcohol (2) Dysphagia, unspecified Priority: Primary Status: Acute Comments: Patient stated food got stuck deep in his chest GI consuted and performed EGD with esophageal dilation to continue soft diet and follow up with GI in 8 weeks for EGD Qualifiers: Dysphagia type: esophageal phase Qualified Code(s): R13.10 - Dysphagia, unspecified (3) Abdominal pain of unknown etiology Priority: Secondary Status: Acute Comments: See above plan Extensive imaging work up negative including XR/CT - Discharge Medications Prescriptions: Pantoprazole Sodium [Protonix] 40 mg PO DAILY #60 tablet. Home Medications: Acetaminophen/Butalbital/Caffe [Fioricet] 1 each PO TID PRN 07/21/17 [History] Buprenorphine HCl/Naloxone HCl [Suboxone 8 mg-2 mg Sl Film] 1 each SL BID [History] Desvenlafaxine Succinate [Pristiq] 50 mg PO DAILY 07/21/17 [History] Fenofibrate Nanocrystallized [Tricor] 145 mg PO BID 07/21/17 [History] Trazodone HCl 150 mg PO HS 07/21/17 [History] clonazePAM [Klonopin] 1 mg PO TID 07/21/17 [History] Pantoprazole Sodium [Protonix] 40 mg PO DAILY #60 tablet. 07/23/17 [Rx] Allergies/Adverse Reactions: 3 Allergy/AdvReac Type Severity Reaction Status Date / Time morphine Allergy Swelling Verified 07/21/17 14:32 of Lip/Tongue/Throat shellfish derived Allergy Swelling Verified 07/22/17 03:34 of Lip/Tongue/Throat tramadol Allergy Swelling Verified 07/21/17 14:32 of Lip/Tongue/Throat Date of admission: 07/22/17 00:59 Primary care physician: PCP NONE Discharging clinician: Saray Ochoa Anticipated date of discharge: 07/23/17 - Patient Status Disposition: Home, Self-Care Condition: Good Functional capacity at discharge: independent ambulation - Discharge Instructions Follow Up With: Manasa Ayon MD [Partnered Physician] - 07/28/17 1:30 pm Heidi Calvin MD [Partnered Physician] - (f/u in 8 weeks for repeat EGD) - Diet and Activity Activity: resume usual activities as tolerated Diet: other (soft diet) Interval History: Mr. Raza is a 19-year-old gentleman who presented with abdominal pain, hematemesis 2, and difficulty swallowing. He had an EGD and dilation yesterday. He is tolerating a soft diet with no further emesis or hematemesis. Denies abdominal pain, chest pain, shortness of breath, nausea, vomiting, changes in bowel or bladder. He is ready to go home. Verbalized understanding of discharge instructions including increasing his PPI, continuing soft diet, avoiding alcohol and NSAIDs, and follow-up with gastroenterology in 8 weeks. Hospital course: Mr. Raza is a 27 year old male - Time Spent with Patient Total time spent providing and/or coordinating discharge services: Less than 30 minutes - Constitutional Vitals: Temp Pulse Resp BP Pulse Ox 97.8 F 110 16 134/82 95 07/23/17 07:28 07/23/17 07:28 07/23/17 07:28 07/23/17 07:28 07/23/17 07:28 General appearance: Present: cooperative, A&O X 3, pleasant, answers questions appropriately - Head Head exam: Present: atraumatic, normocephalic - Eye Eye exam: Present: conjuntiva pink, sclera anicteric - Neck Neck exam general surgery: Present: supple, trachea midline. Absent: lymphadenopathy - Respiratory Respiratory exam: Present: CTAB. Absent: accessory muscle use, chest wall tenderness, rales, rhonchi, wheezes - Cardiovascular Cardiovascular exam: Present: RRR, +S1, +S2. Absent: diastolic murmur, gallop, rubs, systolic murmur - GI/Abdominal GI/Abdominal exam: Present: normal bowel sounds, soft, no peritoneal signs. Absent: distended, tenderness - Extremities Exam Extremities exam: Present: warm, radial pulses palpable and symmetrical. Absent : calf tenderness, cyanotic, pedal edema - Neurological Exam Neurological exam: Present: oriented X3, no focal deficits. Absent: pronater drift, facial droop, speech deficit - Skin Skin exam: Present: dry, intact
== END 2017-07-23 11:45 | disposition home or self-care (01) ==
LOC: EMEROO 13:39 → 3BNU 13:39
PROVIDERS: ADMIT Internal Medicine; ATTEND Registered Nurse
PROC: ENDOEDS (2017-07-22 16:30)

== ENCOUNTER 2019-09-05 10:00 | Observation (INO) ==
[2019-09-05] MEDS ORDERED: Isovue-370 500 ML BOTTLE IVP ONE ×2 (10:26→17:13)
[2019-09-05] MEDS ORDERED: Famotidine 20 MG/2 ML VIAL IVP ONE (10:27)
[2019-09-05] MEDS ORDERED: methylPREDNISolone 125 MG/2 ML VIAL IVP ONE (10:27)
[2019-09-05 10:52] LABS: Mean Platelet Volume 9.1 fL (9.4-12.4)
[2019-09-05 10:53] LABS: Hematocrit 27.8 % (37.5-50.1); Hemoglobin 7.4 g/dL (12.9-16.9); Mean Corpuscular HGB Conc 26.6 g/dL (31.6-35.5); Mean Corpuscular Hemoglobin 17.3 pg (28.0-33.3); Nucleated Red Blood Cells 0.3 /100 WBC (0); Platelet Count 324 K/mcL (140-400); Red Blood Count 4.28 M/mcL (4.19-5.50); Red Cell Distribution Width 18.7 % (11.5-14.5); White Blood Count 7.8 K/mcL (4.3-11.1)
[2019-09-05 10:59] LABS: INR 1.1; Prothrombin Time 12.5 Seconds (9.4-12.1)
[2019-09-05 11:01] LABS: Activated Partial Thrombo Time 30.2 Seconds (26.0-36.0)
[2019-09-05 11:07] LABS: Anisocytosis 1+ (Not Present); Eosinophils # 0.9 K/mcL (0.0-0.6); Hypochromasia Present (Not Present); Lymphocytes # 3.1 K/mcL (0.6-4.6); Microcytosis Present (Not Present); Monocytes # 0.6 K/mcL (0.0-1.3); Neutrophils # 3.1 K/mcL (1.6-8.9); Platelet Estimate Normal (Normal); Poikilocytosis 1+ (Not Present)
[2019-09-05 11:13] LABS: BUN/Creatinine Ratio 14 (6-26); Blood Urea Nitrogen 13 mg/dL (6-20); Calcium 8.5 mg/dL (8.6-10.3); Carbon Dioxide 23 mEq/L (23-29); Chloride 106 mEq/L (98-107); Glucose 110 mg/dL (70-105); Osmolality,Calculated 283 (280-300); Potassium 3.9 mEq/L (3.5-5.1); Sodium 136 mEq/L (136-145); eGFR For African Americans > 60 (> 60); eGFR For Non-African Americans > 60 (> 60)
[2019-09-05] MEDS ORDERED: *HR* Heparin 5,000 UNIT/ML VIAL IVP PRN ×2 (12:26)
[2019-09-05] MEDS ORDERED: *HR* Heparin 5,000 UNIT/ML VIAL IVP ONE (12:26)
[2019-09-05] MEDS: Heparin 25,000 UNIT/250 ML D5W 25,000 UNIT/250 ML IV.SOLN IVC SCH (12:51)
[2019-09-05] MEDS ORDERED: Naloxone 0.4 MG/ML INJ IVP PRN (13:01)
[2019-09-05 15:09] LABS: % Iron Saturation 3 % (20-55); Iron 14 mcg/dL (65-175); Transferrin 372 mg/dL (203-362)
[2019-09-05 15:27] LABS: Ferritin < 8 ng/mL (20-250)
[2019-09-05 15:33] LABS: Folate 18.8 ng/mL (3.0-16.0)
[2019-09-05] MEDS: ALPRAZolam 0.5 MG TABLET PO PRN (16:24)
[2019-09-05 19:54] LABS: Hematocrit 29.7 % (37.5-50.1); Hemoglobin 7.7 g/dL (12.9-16.9)
[2019-09-05] MEDS: QUEtiapine Fumarate 100 MG TABLET PO SCH (21:17)
[2019-09-05] MEDS: Fluticasone Propionate Nasal 50 MCG/SPRAY BOTTLE NS SCH (21:18)
[2019-09-06 04:25] LABS: Mean Corpuscular Hemoglobin 17.5 pg (28.0-33.3); Mean Platelet Volume 9.2 fL (9.4-12.4)
[2019-09-06 04:26] LABS: Basophils # 0.1 K/mcL (0.0-0.2); Basophils % 0.6 %; Eosinophils # 0.1 K/mcL (0.0-0.6); Eosinophils % 1.3 %; Hematocrit 24.4 % (37.5-50.1); Hemoglobin 6.6 g/dL (12.9-16.9); Immature Granulocytes % 2.6 % (0-4); Immature Reticulocyte % 42.1 % (11.0-38.0); Lymphocytes # 1.9 K/mcL (0.6-4.6); Lymphocytes % 21.9 %; Mean Corpuscular Volume 64.7 fL (83.0-100.0); Monocytes # 0.5 K/mcL (0.0-1.3); Monocytes % 5.4 %; Neutrophils # 5.9 K/mcL (1.6-8.9); Nucleated Red Blood Cells 0.5 /100 WBC (0); Platelet Count 327 K/mcL (140-400); Red Blood Count 3.77 M/mcL (4.19-5.50); Red Cell Distribution Width 18.6 % (11.5-14.5); Retculocyte # 0.09 M/mcL (0.05-0.10); Reticulocyte % 2.3 % (1.6-2.8); Segmented Neutrophils % 68.2 %; White Blood Count 8.6 K/mcL (4.3-11.1)
[2019-09-06 04:49] LABS: BUN/Creatinine Ratio 16 (6-26); Blood Urea Nitrogen 14 mg/dL (6-20); Calcium 8.4 mg/dL (8.6-10.3); Carbon Dioxide 25 mEq/L (23-29); Chloride 104 mEq/L (98-107); Glucose 142 mg/dL (70-105); Magnesium 1.8 mg/dL (1.6-2.6); Osmolality,Calculated 285 (280-300); Phosphorous 4.1 mg/dL (2.7-4.5); Sodium 136 mEq/L (136-145); eGFR For African Americans > 60 (> 60); eGFR For Non-African Americans > 60 (> 60)
[2019-09-06] MEDS: Heparin 25,000 UNIT/250 ML D5W 25,000 UNIT/250 ML IV.SOLN IVC SCH ×2 (04:58→20:14)
[2019-09-06 05:09] LABS: Hypochromasia Present (Not Present); Microcytosis Present (Not Present); Platelet Estimate Normal (Normal)
[2019-09-06] MEDS: Fenofibrate 54 MG TABLET PO SCH (08:26)
[2019-09-06] MEDS: Loratadine 10 MG TABLET PO SCH (08:26)
[2019-09-06] MEDS: Fluticasone Propionate Nasal 50 MCG/SPRAY BOTTLE NS SCH (08:31)
[2019-09-06] MEDS: ALPRAZolam 0.5 MG TABLET PO PRN ×2 (08:31→17:47)
[2019-09-06] MEDS ORDERED: 0.9 % Sodium Chloride 250 ML ONE (09:18)
[2019-09-06] MEDS ORDERED: *HR* Meperidine 25 MG/ML SYRINGE IVP ONE (11:19)
[2019-09-06 14:44] LABS: Hematocrit 30.4 % (37.5-50.1)
[2019-09-06 14:45] LABS: Hemoglobin 8.4 g/dL (12.9-16.9)
[2019-09-06] MEDS ORDERED: Acetaminophen 325 MG TABLET PO PRN (15:50)
[2019-09-06 16:40] LABS: Hematocrit 30.8 % (37.5-50.1); Hemoglobin 8.6 g/dL (12.9-16.9)
[2019-09-06] MEDS: QUEtiapine Fumarate 100 MG TABLET PO SCH (22:49)
[2019-09-07] MEDS: ALPRAZolam 0.5 MG TABLET PO PRN ×2 (00:38→14:32)
[2019-09-07] MEDS: Fluticasone Propionate Nasal 50 MCG/SPRAY BOTTLE NS SCH ×2 (00:39→14:09)
[2019-09-07 05:43] LABS: Basophils # 0.1 K/mcL (0.0-0.2); Basophils % 1.2 %; Eosinophils # 1.1 K/mcL (0.0-0.6); Eosinophils % 12.4 %; Hematocrit 30.6 % (37.5-50.1); Hemoglobin 8.5 g/dL (12.9-16.9); Immature Granulocytes % 3.5 % (0-4); Lymphocytes # 3.7 K/mcL (0.6-4.6); Lymphocytes % 41.7 %; Mean Corpuscular HGB Conc 27.8 g/dL (31.6-35.5); Mean Corpuscular Hemoglobin 18.6 pg (28.0-33.3); Mean Corpuscular Volume 67.1 fL (83.0-100.0); Mean Platelet Volume 9.1 fL (9.4-12.4); Monocytes # 0.3 K/mcL (0.0-1.3); Monocytes % 3.7 %; Nucleated Red Blood Cells 0.4 /100 WBC (0); Platelet Count 363 K/mcL (140-400); Red Blood Count 4.56 M/mcL (4.19-5.50); Red Cell Distribution Width 20.9 % (11.5-14.5); Segmented Neutrophils % 37.5 %; White Blood Count 8.9 K/mcL (4.3-11.1)
[2019-09-07 05:45] LABS: Neutrophils # 3.3 K/mcL (1.6-8.9)
[2019-09-07 05:58] LABS: Hypochromasia Present (Not Present); Microcytosis Present (Not Present); Ovalocytes 2+ (Not Present); Polychromasia 1+ (Not Present)
[2019-09-07 05:59] LABS: Anisocytosis 1+ (Not Present); Platelet Estimate Normal (Normal); Poikilocytosis 1+ (Not Present)
[2019-09-07 06:08] LABS: BUN/Creatinine Ratio 18 (6-26); Blood Urea Nitrogen 17 mg/dL (6-20); Carbon Dioxide 25 mEq/L (23-29); Chloride 105 mEq/L (98-107); Glucose 97 mg/dL (70-105); Osmolality,Calculated 289 (280-300); Potassium 4.2 mEq/L (3.5-5.1); Sodium 139 mEq/L (136-145); eGFR For African Americans > 60 (> 60); eGFR For Non-African Americans > 60 (> 60)
[2019-09-07] MEDS ORDERED: Iron Sucrose Complex 400 MG in 0.9 % Sodium Chloride 250 ML IVPB SCH (09:00)
[2019-09-07 11:19] LABS: Cancer Antigen-GI (CA 19-9) 12 U/mL (0-37)
[2019-09-07] MEDS ORDERED: 0.9 % Sodium Chloride 500 ML IVC SCH (12:15)
[2019-09-07] MEDS ORDERED: Lidocaine -MPF 2% 2 ML VIAL ONE (12:39)
[2019-09-07] MEDS ORDERED: *HR* Propofol 200 MG/20 ML VIAL IVP ONE (12:39)
[2019-09-07 13:17] LABS: AFP Tumor Marker Non-Pregnant 1 ng/mL (0-9)
[2019-09-07] MEDS: Loratadine 10 MG TABLET PO SCH (14:05)
[2019-09-07] MEDS: Fenofibrate 54 MG TABLET PO SCH (14:05)
[2019-09-07] MEDS ORDERED: *HR* Heparin 5,000 UNIT/ML VIAL IVP PRN ×2 (14:40)
[2019-09-07] MEDS ORDERED: *HR* Heparin 5,000 UNIT/ML VIAL IVP ONE (14:40)
[2019-09-07] MEDS ORDERED: Heparin 25,000 UNIT/250 ML D5W 25,000 UNIT/250 ML IV.SOLN IVC SCH (14:45)
[2019-09-07 15:15] VITALS: BP 145/79
[2019-09-07 16:26] LABS: Hematocrit 32.7 % (37.5-50.1); Hemoglobin 9.2 g/dL (12.9-16.9)
[2019-09-07 16:30] LABS: Hematocrit 32.4 % (37.5-50.1); Mean Corpuscular HGB Conc 27.8 g/dL (31.6-35.5); Mean Corpuscular Hemoglobin 18.8 pg (28.0-33.3); Mean Corpuscular Volume 67.5 fL (83.0-100.0); Mean Platelet Volume 9.3 fL (9.4-12.4); Platelet Count 384 K/mcL (140-400); Red Cell Distribution Width 20.6 % (11.5-14.5); White Blood Count 8.2 K/mcL (4.3-11.1)
[2019-09-07 16:42] LABS: Heparin anti-factor XA UFH < 0.04 IU/mL (0.30-0.70)
[2019-09-07 16:43] LABS: Prothrombin Time 11.6 Seconds (9.4-12.1)
[2019-09-07] MEDS ORDERED: Ketorolac 30 MG/ML VIAL IVP PRN (17:22)
[2019-09-08 19:16] LABS: APTT (LE Anticoag) 62 sec (32-48); Diluted Russell Viper Venom 29 sec (33-44); LE APTT D Heparin Neutralized 36 sec (32-48); LE Coag Reptilase Time 15.2 sec (<=21.9); PT (LE-Anticoag) 13.6 sec (12.0-15.5); Thrombin Time 126.4 sec (14.7-19.5)
[2019-09-08 19:48] LABS: Prothrombin G20210A Specimen WHOLE BLOOD
[2019-09-09 15:17] LABS: JAK2 (V617F) Mutation by PCR NOT DETECTED
== END 2019-09-07 18:55 | disposition home or self-care (01) ==
LOC: 3ANU 10:00 → EMEROOARM 10:00 → SUATTDRO 12:49 → 3ANU 13:55
PROVIDERS: ADMIT Internal Medicine; ATTEND Internal Medicine